=== PATIENT | male | born 1955 | race Hispanic/Latino ===

== ENCOUNTER 2019-10-16 06:04 | Day surgery (SDC) | payer MEDICARE ==
[~2019-10-16 06:04] MED LIST: BUPIVACAINE/PF (0.5%) 5 MG/1 ML 10 ML VIAL INFILTRATI ONE; ceFAZolin/Water 2 GM/20 ML 2 GM/20 ML SYRINGE IV NR
[2019-10-16] MEDS ORDERED: HYDROmorphone 1 MG/1 ML INJ IV PRN (07:12)
[2019-10-16] MEDS ORDERED: ONDANSETRON 4 MG/2 ML INJ IV PRN (07:12)
[2019-10-16] MEDS ORDERED: HYDROcodone/ACETAMINOPHEN 5-325 MG TAB PO PRN (07:12)
--- NOTE | 2019-10-16 07:13 | Anesthesia Day of Surgery ---
Anesthesia Day of Surgery - Day of Surgery Patient Examined: Yes Patient H&P Reviewed: Yes Patient is NPO: Yes
--- NOTE | 2019-10-16 07:13 | Anesthesia Consultation ---
Anesthesia Consult and Med Hx Date of service: 10/16/19 - Airway Anesthetic Teeth Evaluation: Edentulous ROM Head & Neck: Adequate Mental/Hyoid Distance: Adequate Mallampati Class: Class II Intubation Access Assessment: Good - Pulmonary Exam CTA: Yes - Cardiac Exam Anesthetic Concerns: Irregular rhythm - Pre-Operative Health Status ASA Pre-Surgery Classification: ASA3 Proposed Anesthetic Plan: General - Cardiovascular System Hx Hypertension: Yes Hx Coronary Artery Disease: Yes Hx Heart Attack/AMI: Yes (2 years ago) Hx Angina: No (Denies chest pain, tightness and SOB) Hx Cardia Arrhythmia: Yes (A fib, off anticoagulents for a month) - Endocrine Hx End Stage Renal Disease: Yes (MWF dialysis for a year) Hx Non-Insulin Dependent Diabetes: Yes
[2019-10-16] MEDS ORDERED: SODIUM CHLORIDE 0.9% 1000 ML 1,000 ML IV SCH (07:15)
[2019-10-16] MEDS ORDERED: BUPIVACAINE/PF (0.5%) 5 MG/1 ML 30 ML VIAL INFILTRATI ONE (07:25)
[2019-10-16] MEDS ORDERED: PROTAMINE SULFATE 50 MG/5 ML INJ ONE (07:25)
[2019-10-16] MEDS ORDERED: SODIUM CHLORIDE 0.9% 500 ML 500 ML ONE (07:26)
[2019-10-16] MEDS ORDERED: HEPARIN 10,000 UNITS/10 ML VIAL ONE (07:26)
[2019-10-16] MEDS ORDERED: rifAMPin 600 MG VIAL ONE (07:26)
[2019-10-16] MEDS ORDERED: SODIUM CHLORIDE P/F VIAL 10 ML 0 ML ONE (07:26)
[2019-10-16] MEDS ORDERED: fentaNYL 100 MCG/2 ML INJ ONE (07:37)
[2019-10-16] MEDS ORDERED: LIDOCAINE MPF (2%) 20 MG/1 ML VIAL 5 ML ONE (07:37)
[2019-10-16] MEDS ORDERED: PROPOFOL 200 MG/20 ML VIAL IV ONE (07:38)
[2019-10-16 07:51] LABS: Eosinophils # (Auto) 0.1 K/mm3 (0.0-0.4); Eosinophils % (Auto) 2.5 % (0.0-4.3); Hematocrit 31.9 % (35.5-45.6); Hemoglobin 10.9 gm/dl (11.8-15.2); Lymphocytes # (Auto) 1.2 K/mm3 (1.2-5.4); Lymphocytes % (Auto) 24.3 % (13.4-35.0); Mean Corpuscular HGB Conc 34 % (32-34); Mean Corpuscular Volume 91 fl (84-94); Monocytes # (Auto) 0.4 K/mm3 (0.0-0.8); Monocytes % (Auto) 8.6 % (0.0-7.3); Platelet Count 203 K/mm3 (140-440); Red Blood Count 3.49 M/mm3 (3.65-5.03); Red Cell Distribution Width 16.7 % (13.2-15.2)
[2019-10-16 08:00] LABS: Calcium 10.5 mg/dL (8.4-10.2)
[2019-10-16] MEDS ORDERED: FAMOTIDINE 20 MG TAB PO NR (08:00)
[2019-10-16] MEDS ORDERED: ONDANSETRON 4 MG/2 ML INJ ONE (08:41)
[2019-10-16] MEDS ORDERED: dexAMETHasone 20 MG/5 ML VIAL ONE (08:41)
[2019-10-16] MEDS ORDERED: METOCLOPRAMIDE 10 MG/2 ML INJ ONE (08:42)
[2019-10-16] MEDS ORDERED: SUCCINYLCHOLINE CHLORIDE 200 MG/10 ML INJ MDV ONE (08:43)
[2019-10-16] MEDS ORDERED: ROCURONIUM 50 MG/5 ML INJ IV ONE (08:43)
[2019-10-16] MEDS ORDERED: HEPARIN 10,000 UNITS/10 ML VIAL IV ONE (09:44)
[2019-10-16] MEDS ORDERED: SODIUM CHLORIDE 0.9% 500 ML IVPB IV ONE (09:44)
[2019-10-16] MEDS ORDERED: PHENYLEPHRINE/NS 1,000 MCG/10 ML SYRINGE (OR USE) IV ONE (10:00)
[2019-10-16] MEDS ORDERED: BUPIVACAINE/PF (0.5%) 5 MG/1 ML 10 ML VIAL INFILTRATI ONE (10:18)
[2019-10-16] MEDS ORDERED: NEOSTIGMINE 10MG/10 ML INJ MDV ONE (10:25)
[2019-10-16] MEDS ORDERED: GLYCOPYRROLATE 0.4 MG/2 ML INJ ONE (10:25)
--- NOTE | 2019-10-16 10:56 | Short Stay Summary ---
Short Stay Documentation Date of service: 10/16/19 Narrative H&P: See H&P - History H&P: obtained from office - Allergies and Medications Current Medications: Allergies No Known Allergies Allergy (Verified 10/16/19 08:41) Home Medications Medication Instructions Recorded Confirmed Last Taken Type Clopidogrel [Plavix] 75 mg PO QDAY 10/16/19 10/16/19 10/05/19 08:00 History Furosemide [Lasix TAB] 40 mg PO QDAY 10/16/19 10/16/19 10/14/19 08:00 History amLODIPine [Norvasc] 10 mg PO DAILY 10/16/19 10/16/19 10/16/19 04:30 History traZODone [Desyrel] 50 mg PO QHS 10/16/19 10/16/19 10/15/19 20:00 History Active Medications Acetaminophen/Hydrocodone Bitart (Irma 5/325) 2 each PO ONCE PRN PRN Reason: Pain, Moderate (4-6) Stop: 10/16/19 20:00 Famotidine (Pepcid) 20 mg PO PREOP NR Stop: 10/16/19 13:00 Last Admin: 10/16/19 07:50 Dose: 20 mg Documented by: Hydromorphone HCl (Dilaudid) 0.25 mg IV Q10MIN PRN PRN Reason: Pain, Moderate (4-6) Stop: 10/16/19 23:00 Cefazolin Sodium (Ancef/Sterile Water 2 Gm/20 Ml) 2 gm in 20 mls @ 80 mls/hr IV PREOP NR; Protocol Stop: 10/16/19 23:59 Sodium Chloride (Nacl 0.9% 1000 Ml) 1,000 mls @ 42 mls/hr IV DIRECT THIERRY Last Admin: 10/16/19 07:50 Dose: 42 mls/hr Documented by: Ondansetron HCl (Zofran) 4 mg IV ONCE PRN PRN Reason: Nausea And Vomiting Stop: 10/16/19 16:00 - Brief post op/procedure progress note Date of procedure: 10/16/19 Pre-op diagnosis: End Stage Renal Disease Post-op diagnosis: same Procedure: Creation of Left Brachiocephalic Arteriovenous Fistula Anesthesia: GETYesica Surgeon: ANTWON COBURN Estimated blood loss: minimal Pathology: none Condition: stable - Disposition Condition at discharge: Good Disposition: DC-01 TO HOME OR SELFCARE Short Stay Discharge Plan Activity: other (No heavy lifting with left arm) Wound: open to air, keep clean and dry, other (Okay to wash the wound with soap and water but do not soak in water) Follow up with: ANTWON COBURN MD [Staff Physician] - 14 Days Prescriptions: HYDROcodone/APAP 7.5-325 [Irma 7.5/325] 1 each PO Q6HR PRN #40 tablet PRN Reason: Pain
--- NOTE | 2019-10-16 11:04 | Operative Report ---
Operative Report Operative Report: Date of procedure:10/16/2019 Pre-operative diagnosis: End-Stage Renal Disease Post-operative diagnosis: End-Stage Renal Disease Procedure(s): Creation of Left Brachial Artery to Cephalic Vein Arteriovenous Fistula Surgeon: Peter Hoover MD Electric Locomotive Crane Operator: None Anesthesia: Gen. Endotracheal Anesthesia EBL: Minimal Counts: Correct Complications: None Condition: Stable Findings: Successful creation of left brachiocephalic arteriovenous fistula with palpable thrill at the completion of the case. Specimen: None Indications: The patient is a 63-year-old male with history of end-stage renal disease who is on hemodialysis through a right intrajugular permacath. He is in need of long- term dialysis access and is scheduled for creation. He was given the risks, benefits, and alternative benefits of dialysis access creation and consented to the procedure. Description of Procedure: The patient was brought to the operating room and laid in supine position after general endotracheal anesthesia was administered the patient was prepped and draped in normal sterile fashion. Ultrasound was used evaluate his veins on the table and he was found to have an adequate cephalic vein in the upper arm. The decision was made to create a brachiocephalic arteriovenous fistula. A transverse incision was created just below the antecubital crease and the dissection was carried down to the the cephalic vein using sharp dissection. The vein was dissected out both proximally and distally and suture ligated and divided distally. I then ran a 3 Crispin proximally in the vein, to ensure patency of the vein. Then flushed the vein with heparinized saline and flow was controlled with a bulldog clamp. I then dissected out the brachial artery through this incision circumferentially both proximal and distal and controlled the artery with vessel loops. I then placed the vessel loops on tension contr olling the flow through the artery and created an arteriotomy using an 11 blade and Talley scissors. I created an end to side anastomosis between the cephalic vein and brachial artery using a 6-0 Prolene in running fashion. Prior to completing the anastomosis I flushed the artery both proximally and distally and then advanced a 3 Crispin proximally to break the spasm in the artery. I then completed the anastomosis and removed all vessel loops allowing flow into the fistula which had an adequate thrill. I achieved hemostasis with a combination of direct pressure and electrocautery. Once hemostasis was achieved I anesthetized the wound with 0.5% Marcaine. I then closed the wound in 2 layers and 3-0 Vicryl in a running fashion to close the deep dermal layer and 4-0 Monocryl in a running fashion in the subcuticular layer. I dressed the wound with Dermabond. The patient tolerated the procedure well, all sponge needle and instrument counts were correct. The patient was taken to recovery in stable condition.
[2019-10-16 12:48] VITALS: BP 152/72
--- NOTE | 2019-10-16 13:52 | Post Anesthesia Evaluation ---
- Post Anesthesia Evaluation Patient Participated: Yes Airway Patent: Yes Stable Respiratory Function: Yes Nausea/Vomiting: No Temp > 96.8F: Yes Pain Manageable: Yes Adequeate Hydration: Yes Anesthesia Complications: No Block Receding Appropriately: Not Applicable Patient on Ventilator: No
== END 2019-10-16 06:05 | disposition home or self-care (01) ==
LOC: OR 06:04
PROVIDERS: ATTEND Surgery Vascular Surgery
DX: I12.0 Hypertensive chronic kidney disease with stage 5 chronic kidney disease or end stage renal disease (principal); E11.22 Type 2 diabetes mellitus with diabetic chronic kidney disease; N18.6 End stage renal disease; I25.10 Atherosclerotic heart disease of native coronary artery without angina pectoris; I42.9 Cardiomyopathy, unspecified; I25.2 Old myocardial infarction; Z79.899 Other long term (current) drug therapy
CPT/HCPCS: 36415; 36821; 80048; 82962; 85025; J0330; J0690; J1100; J1644; J2370; J2405; J2704; J2710; J2765; J3010; J7030; J7040; J2720; J3490